=== PATIENT | male | born 1995 | race Two or more races ===

== ENCOUNTER 2021-01-04 00:20 | Emergency (ER) | payer SELFPAY ==
[~2021-01-04] VITALS: Ht 180.3 cm; Wt 108.9 kg
[2021-01-04] MEDS ORDERED: TETANUS-DIPTH-ACEL PERTUSSIS 0.5ML SYR Tdap IM ONE (03:00)
[2021-01-04 04:25] VITALS: BP 152/112
== END 2021-01-04 04:36 | disposition home or self-care (01) ==
LOC: ER 00:20
DX: S61.412A Laceration without foreign body of left hand, initial encounter (principal); W26.0XXA Contact with knife, initial encounter; Y93.89 Activity, other specified; Y92.89 Other specified places as the place of occurrence of the external cause; Y99.8 Other external cause status
CPT/HCPCS: 12001; 73120; 90471; 90715